=== PATIENT | male | born 1955 | race Caucasian/White ===

== ENCOUNTER 2020-09-25 10:06 | Emergency (ER) | payer BC, OTHER ==
[2020-09-25] MEDS ORDERED: Take Home: Cephalexin 500 MG Cap, 4 Cap Pack PO ONE (10:39)
[2020-09-25] MEDS ORDERED: Take Home: Acetaminophen/Codeine 300 MG/30 MG, 5 Tab Pack PO ONE (10:53)
--- NOTE | 2020-09-25 11:00 | EDM.PDOC ---
ED HPI GENERAL MEDICAL PROBLEM - General Chief Complaint: Skin Complaint Stated Complaint: BLOOD BLISTER R THUMB Time Seen by Provider: 09/25/20 10:26 Source of Information: Reports: Patient History Limitations: Reports: No Limitations - History of Present Illness INITIAL COMMENTS - FREE TEXT/NARRATIVE: Pt. presents to ER with complaints of swelling/"blood blister" to posterior aspect of R thumb. Pt. denies any trauma to this area. No fever or chills. Pt. states that he is able to move the digit but with increased discomfort. Pt. states that he has opened the lesion several times to drain it at home, but states that it swells up again. He states that he had a similar lesion to an adjacent digit within the past year. He states that he "picked at it" and it gradually resolved without intervention. Pt. denies any history of gout. No lesions elsewhere on his body. Onset Date: 09/23/20 Location: Reports: Upper Extremity, Right Quality: Reports: Throbbing Severity: Moderate Right Finger-Thumb Pain Score (Numeric/FACES): 5 - Related Data Allergies Allergy/AdvReac Type Severity Reaction Status Date / Time No Known Allergies Allergy Verified 09/25/20 10:20 Home Meds: Home Meds Aspirin 81 mg PO DAILY 09/25/20 [History] Past Medical History - Past Surgical History GI Surgical History: Reports: Hernia, Abdominal Social & Family History - Tobacco Use Tobacco Use Status *Q: Current Every Day Tobacco User Years of Tobacco use: 40 Packs/Tins Daily: 1.5 ED ROS GENERAL - Review of Systems Review Of Systems: Comprehensive ROS is negative, except as noted in HPI. ED EXAM, SKIN/RASH Exam: See Below Exam Limited By: No Limitations General Appearance: Alert, WD/WN, No Apparent Distress Extremities: Other (approx 3x2 CM bullae noted over IP joint of R thumb. Evidence of recent opening of lesion, not currently draining. Fluid dark red in color.) ED SKIN PROCEDURES - I&D Skin Prep: Chlorhexidine (Hibiciens) Area Incised With: Needle Drainage: Bloody Sterile Dressing: Other (2x2s and coban.) Progress/Comments: Approx. 4 ml of reddish colored fluid aspirated from bullae of R thumb. Fluid is not purulent. Aspiration approach was superficial and did not enter the joint space, only into the skin that had previously been opened by patient. Course - Vital Signs Last Recorded V/S: Last Vital Signs Temp 36.1 C 09/25/20 10:16 Pulse 84 09/25/20 10:16 Resp 18 09/25/20 10:16 BP 138/75 09/25/20 10:16 Pulse Ox 99 09/25/20 10:16 - Orders/Labs/Meds Orders: Active Orders 24 hr Category Date Time Status CULTURE WOUND [RM] Stat Lab 09/25/20 10:35 Received GRAM STAIN [RM] Stat Lab 09/25/20 10:35 Received SYNOVIAL CRYSTALS Stat Lab 09/25/20 10:35 Received Meds: Medications Discontinued Medications Generic Name Dose Route Start Last Admin Trade Name Freq PRN Reason Stop Dose Admin Acetaminophen/Codeine Phosphate 1 packet 09/25/20 10:53 09/25/20 10:56 Take Home: Acetaminophen/Codeine 300 Mg/30 Mg, 5 Tab Pack PO 09/25/20 10:54 1 packet ONETIME ONE Administration Cephalexin 1 packet 09/25/20 10:39 09/25/20 10:52 Take Home: Cephalexin 500 Mg Cap, 4 Cap Pack PO 09/25/20 10:40 1 packet ONETIME ONE Administration Departure - Departure Time of Disposition: 11:09 Disposition: DC/Tfer to [facility] 02 Clinical Impression: Cellulitis - Discharge Information Instructions: Cellulitis, Adult, Cephalexin Tablets or Capsules, Probiotics Forms: ED Department Discharge Additional Instructions: Keflex 500mg 1 cap 4 times daily for 10 days Keep compression on the blister. We will let you know the results of the tests. Recheck in clinic in 10-14 days, sooner if not gradually improving. Sepsis Event Note (ED) - Focused Exam Vital Signs: Vital Signs Temp Pulse Resp BP Pulse Ox 09/25/20 10:16 36.1 C 84 18 138/75 99 - Problem List Review Problem List Initiated/Reviewed/Updated: Yes - My Orders Last 24 Hours: My Active Orders 09/25/20 10:35 CULTURE WOUND [RM] Stat GRAM STAIN [RM] Stat SYNOVIAL CRYSTALS Stat - Assessment/Plan Last 24 Hours: My Active Orders 09/25/20 10:35 CULTURE WOUND [RM] Stat GRAM STAIN [RM] Stat SYNOVIAL CRYSTALS Stat Plan: Aspirate was sent for microbiology and culture. Will start the patient on keflex 500mg 4 times a day for 10 days. Pt. was quite uncomfortable and was started on tylenol #3 to take if ibuprofen isn't helping. Follow-up in clinic in 7-10 days, sooner if not gradually improving.
== END 2020-09-25 10:58 | disposition home or self-care (01) ==
LOC: VM.ED 10:06
DX: L03.011 Cellulitis of right finger (principal); L02.511 Cutaneous abscess of right hand; Z72.0 Tobacco use; Z79.82 Long term (current) use of aspirin
CPT/HCPCS: 10160; 87070; 87077; 87186; 87205; 89060; 99283; 99283-25; A9270-GY

== ENCOUNTER 2024-02-03 05:08 | Emergency (ER) | payer MEDICARE ==
[2024-02-03] MEDS ORDERED: Sodium Chloride 0.9% 10 ML Syringe FLUSH PRN (05:28)
[2024-02-03 05:50] LABS: BASOPHILS PERCENT AUTO 0.1 % (0.2-1.2); EOSINOPHILS ABSOLUTE AUTO 0.1 x10^3/uL (0.0-0.5); EOSINOPHILS PERCENT AUTO 0.4 % (0.0-4.0); HEMATOCRIT 37.8 % (40.0-52.0); HEMOGLOBIN 12.7 g/dL (14.0-18.0); IMMATURE GRAN ABSOLUTE AUTO 0.03 x10^3/uL (0.00-0.07); LYMPHOCYTES ABSOLUTE AUTO 0.5 x10^3/uL (1.0-4.8); LYMPHOCYTES PERCENT AUTO 2.7 % (25.0-50.0); MEAN CORPUSCULAR HEMOGLOBIN 29.2 pg (26.0-32.0); MEAN CORPUSCULAR HGB CONC 33.6 g/dL (32.0-36.0); MEAN CORPUSCULAR VOLUME 86.9 fL (78.0-93.0); MONOCYTES ABSOLUTE AUTO 0.9 x10^3/uL (0.0-0.8); MONOCYTES PERCENT AUTO 5.1 % (2.0-11.0); NEUTROPHILS ABSOLUTE AUTO 15.4 x10^3/uL (1.8-7.7); NEUTROPHILS PERCENT AUTO 91.5 % (50.0-80.0); PLATELET COUNT,PLT 228 x10^3/uL (130-400); RED BLOOD CELL COUNT 4.35 x10^6/uL (4.5-6.0)
[2024-02-03] MEDS: Ketorolac 15 MG/ML SDV ONE (05:52)
[2024-02-03] MEDS: Ketorolac 15 MG/ML SDV IVPUSH ONE (05:52)
[2024-02-03] MEDS: Clindamycin Phosphate in D5W 600 MG in Premix Bag 1 BAG IV ONE (05:52)
[2024-02-03 05:58] LABS: WHITE BLOOD CELL COUNT,WBC 16.8 x10^3/uL (4.0-10.0)
[2024-02-03 06:05] LABS: A/G RATIO 1.11; ALBUMIN 3.1 g/dL (3.4-5.0); ANION GAP 13.2 mmol/L (5-15); BILIRUBIN TOTAL 0.5 mg/dL (0.2-1.0); C-REACTIVE PROTEIN 3.8 mg/dL (<=0.50); CALCIUM 9.5 mg/dL (8.5-10.1); CREATININE 1.5 mg/dL (0.70-1.30); EST CRCL DRUG DOSING (CG) 43.45 mL/min; POTASSIUM,K 4.2 mmol/L (3.5-5.1); PROTEIN TOTAL,TP 5.9 g/dL (6.4-8.2)
[2024-02-03] MEDS: Sodium Chloride 0.9% 1,000 ML IV ONE (06:16)
[2024-02-03] MEDS: Morphine 4 MG/ML Syringe IVPUSH ONE (06:27)
[2024-02-03] MEDS: Ketorolac 30 MG/ML SDV IVPUSH ONE (06:28)
[2024-02-03] MEDS: Ondansetron 4 MG/2 ML SDV IVPUSH ONE (06:28)
[2024-02-03] MEDS: Iopamidol 612 MG/ML 100 ML Bottle IVPUSH ONE (07:50)
== END 2024-02-03 09:45 | disposition home or self-care (01) ==
LOC: VM.ED 05:08
DX: L03.113 Cellulitis of right upper limb (principal); R55 Syncope and collapse; Z79.899 Other long term (current) drug therapy; Z79.82 Long term (current) use of aspirin; Z79.84 Long term (current) use of oral hypoglycemic drugs; Z79.891 Long term (current) use of opiate analgesic
CPT/HCPCS: 36415; 73201; 80053; 84484; 85025; 85379; 86140; 87040; 87077; 87184; 87186; 96361; 96365; 96375; 99284; 99285-25; J0736; J1885; J2270; J2405; J7030; Q9967

== ENCOUNTER 2024-02-18 15:14 | Emergency (ER) | payer MEDICARE | END 2024-02-18 17:45 | disposition left against medical advice (07) | LOC: VM.ED 15:14 | DX: Z53.21 Procedure and treatment not carried out due to patient leaving prior to being seen by health care provider (principal) ==

== ENCOUNTER 2024-07-28 22:10 | Emergency (ER) | payer MEDICARE ==
[2024-07-28] MEDS: Take Home: Amoxicillin/Clavulanate K 875-125 MG Tab, 2 Tab Pack PO ONE (22:32)
== END 2024-07-28 22:37 | disposition home or self-care (01) ==
LOC: VM.ED 22:10
DX: L03.113 Cellulitis of right upper limb (principal); E78.00 Pure hypercholesterolemia, unspecified; E11.9 Type 2 diabetes mellitus without complications; Z88.6 Allergy status to analgesic agent; Z88.8 Allergy status to other drugs, medicaments and biological substances; Z79.84 Long term (current) use of oral hypoglycemic drugs; Z79.82 Long term (current) use of aspirin; Z79.899 Other long term (current) drug therapy
CPT/HCPCS: 99283; A9270-GY